=== PATIENT | male | born 1980 | race Caucasian/White ===

== ENCOUNTER 2016-03-25 11:00 | Inpatient (IN) | payer MEDICAID ==
[~2016-03-25] VITALS: Ht 180.3 cm; Wt 106.3 kg
[2016-03-25] VITALS (10 sets, daily range): BP systolic 141–218; BP diastolic 73–122; PULSE 84–124; RESP 12–22; TEMP 97.7–98.7; O2SAT 94–98
[~2016-03-25 11:00] MED LIST: AMLO5TAB22 PO; ERYT1O EACH EYE
--- NOTE | 2016-03-25 12:11 | PD ---
HPI Chief Complaint: Numbness/Tingling Time Seen by Provider: 12:08 Travel History International Travel<30 days: No Contact w/Intl Traveler<30days: No Traveled to known affect area: No History of Present Illness HPI 35-year-old male presents to the emergency department for evaluation of paresthesias to his right arm and right leg that started yesterday morning. He also states he has had trouble gripping things with his right hand which is new for him. The patient states he tried to grab some nails at work and could not do this so he came to the emergency department. Patient denies any headache. He denies any chest pain or shortness of breath. Patient denies any abdominal pain. No nausea or vomiting. Patient denies having any chronic medical problems or take any prescribed medications. Blood pressure is elevated in triage. Patient states he is unsure if he has had high blood pressure in the past. He drinks alcohol on the weekends only. He denies any tobacco or illegal drug use. Patient denies any fevers or chills. [facility] Social History Alcohol Use: Yes (SOCIAL) Tobacco Use: No Substance Use: No Allergies-Medications (Allergen,Severity, Reaction): Coded Allergies: No Known Allergies (Unverified , 03/25/16) Reported Meds & Prescriptions Reported Meds & Active Scripts Active No Active Prescriptions or Reported Medications Review of Systems Except as stated in HPI: all other systems reviewed are Neg Physical Exam Narrative GENERAL: Well-developed well-nourished male patient, afebrile. SKIN: Warm and dry. HEAD: Normocephalic. Atraumatic. EYES: No scleral icterus. No injection or drainage. NECK: Supple, trachea midline. No JVD or lymphadenopathy. CARDIOVASCULAR: Regular rate and rhythm without murmurs, gallops, or rubs. RESPIRATORY: Breath sounds equal bilaterally. No accessory muscle use. Lungs sounds are clear to auscultation. GASTROINTESTINAL: Abdomen soft, non-tender, nondistended. MUSCULOSKELETAL: No cyanosis, or edema. Bilateral upper and lower extremity strength 5/5. All extremities are neurovascularly intact. BACK: Nontender without obvious deformity. No CVA tenderness. NEUROLOGICAL: Awake and alert. Cranial nerves II through XII intact. Motor and sensory grossly within normal limits. Five out of 5 muscle strength in all muscle groups. Normal speech. Finger to nose is normal bilaterally. Data Data Last Documented VS Vital Signs Date Time Temp Pulse Resp B/P Pulse Ox O2 Delivery O2 Flow Rate FiO2 03/25/16 13:38 92 12 168/104 96 Nasal Cannula 2 03/25/16 11:02 98.7 Orders Electrocardiogram (03/25/16 12:06) Complete Blood Count With Diff (03/25/16 12:06) Basic Metabolic Panel (Bmp) (03/25/16 12:06) Creatine Kinase (Cpk) (03/25/16 12:06) Troponin I (03/25/16 12:06) Ct Brain W/O Iv Contrast(Rout) (03/25/16 12:06) Magnesium (Mg) (03/25/16 12:06) Prothrombin Time / Inr (Pt) (03/25/16 12:43) Act Partial Throm Time (Ptt) (03/25/16 12:43) Ecg Monitoring (03/25/16 12:43) Iv Access Insert/Monitor (03/25/16 12:43) Oximetry (03/25/16 12:43) Sodium Chloride 0.9% Flush (Ns Flush) (03/25/16 12:45) Fibrinogen (03/25/16 12:43) Nicardipine Inj (Cardene Inj) (03/25/16 12:45) Consult Neurosurgery (03/25/16 ) Labs Laboratory Tests Test 03/25/16 03/25/16 12:30 13:10 White Blood Count 10.8 TH/MM3 Red Blood Count 5.05 MIL/MM3 Hemoglobin 15.2 GM/DL Hematocrit 43.6 % Mean Corpuscular Volume 86.2 FL Mean Corpuscular Hemoglobin 30.0 PG Mean Corpuscular Hemoglobin 34.8 % Concent Red Cell Distribution Width 13.6 % Platelet Count 229 TH/MM3 Mean Platelet Volume 7.9 FL Neutrophils (%) (Auto) 58.7 % Lymphocytes (%) (Auto) 27.4 % Monocytes (%) (Auto) 7.7 % Eosinophils (%) (Auto) 5.2 % Basophils (%) (Auto) 1.0 % Neutrophils # (Auto) 6.3 TH/MM3 Lymphocytes # (Auto) 3.0 TH/MM3 Monocytes # (Auto) 0.8 TH/MM3 Eosinophils # (Auto) 0.6 TH/MM3 Basophils # (Auto) 0.1 TH/MM3 CBC Comment DIFF FINAL Differential Comment Sodium Level 141 MEQ/L Potassium Level 3.8 MEQ/L Chloride Level 107 MEQ/L Carbon Dioxide Level 27.8 MEQ/L Anion Gap 6 MEQ/L Blood Urea Nitrogen 16 MG/DL Creatinine 0.97 MG/DL Estimat Glomerular Filtration 89 ML/MIN Rate Random Glucose 102 MG/DL Calcium Level 8.8 MG/DL Magnesium Level 2.2 MG/DL Total Creatine Kinase 121 U/L Troponin I LESS THAN 0.02 NG/ML Prothrombin Time 10.9 SEC Prothromb Time International 1.0 RATIO Ratio Activated Partial 26.8 SEC Thromboplast Time Fibrinogen 270 mg/dL [facility] Medical Decision Making Medical Screen Exam Complete: Yes Emergency Medical Condition: Yes Medical Record Reviewed: Yes Differential Diagnosis CVA versus TIA versus intracranial hemorrhage versus hypertension versus electrolyte abnormality Narrative Course 35-year-old male presents to the emergency department for evaluation of paresthesias on his right arm and right leg as well as trouble gripping with his right hand since yesterday morning. EKG, CBC, BMP, magnesium, CK, troponin , CT of the brain are ordered. Workup is initiated in triage. Once a medical bed becomes available, patient will be transferred and care assumed by that provider. While patient was in the triage room, radiologist informed me that patient has a 2.8 x 1.8 cm high density acute hemorrhage centered in the left basal ganglia with mild surrounding edema. I contacted my attending physician, Dr. Curiel, who also saw patient. PTT, PT/INR, fibrinogen were ordered as well as cardene drip. Neurosurgeon commissions coordinator is paged. EKG shows sinus rhythm, LVH, no STEMI. The patient was moved to medical pod. My attending physician, Dr. Curiel, will resume care of patient. Scripts No Active Prescriptions or Reported Meds Winnie Cano Mar 25, 2016 12:11
--- NOTE | 2016-03-25 12:39 | RADRPT ---
EXAM DATE/TIME: 03/25/2016 12:17 [place] COMPARISON: No previous studies available for comparison. INDICATIONS : Right sided arm and leg numbness since yesterday. RADIATION DOSE: 56.78 CTDIvol (mGy) MEDICAL HISTORY : None SURGICAL HISTORY : None. ENCOUNTER: Initial ACUITY: 1 day PAIN SCALE: 0/10 LOCATION: cranial TECHNIQUE: Multiple contiguous axial images were obtained of the head. Using automated exposure control and adj ustment of the mA and/or kV according to patient size, radiation dose was kept as low as reasonably a chievable to obtain optimal diagnostic quality images. FINDINGS: CEREBRUM: The ventricles are normal for age. No evidence of midline shift, mass lesion, or acute infarction. T here is a 2.8 x 1.8 cm high density acute hemorrhage centered in the left basal ganglia with mild misha rounding edema. There is no significant mass effect or midline shift. No extra-axial fluid collection s are seen. POSTERIOR FOSSA: The cerebellum and brainstem are intact. The 4th ventricle is midline. The cerebellopontine angle i s unremarkable. EXTRACRANIAL: The visualized portion of the orbits is intact. SKULL: The calvaria is intact. No evidence of skull fracture. CONCLUSION: Acute high density hemorrhage in the left basal ganglia with mild surrounding edema. These findings were called emergently to the ER to [facility] at 1236 hrs. Pal Zapata MD on March 25, 2016 at 12:34 Board Certified Radiologist. This report was verified electronically.
[2016-03-25] MEDS ORDERED: niCARdipine INJ 25 MG in SODIUM CHLOR 0.9% 250 ML INJ 250 ML IV ONE ×2 (12:45→19:30)
[2016-03-25] MEDS ORDERED: SODIUM CHLORIDE 0.9% FLUSH 5 ML FLUSH IVF PRN (12:45)
[2016-03-25 12:46] LABS: AUTOMATED NEUTROPHIL # 6.3 TH/MM3 (1.8-7.7); BASOPHIL # 0.1 TH/MM3 (0-0.2); EOSINOPHIL # 0.6 TH/MM3 (0-0.4); EOSINOPHIL % 5.2 % (0.0-4.0); HEMATOCRIT 43.6 % (39.0-51.0); HEMO FLAGS DIFF FINAL; LYMPH % 27.4 % (9.0-44.0); MEAN CELL VOLUME 86.2 FL (80.0-100.0); MEAN CORPUSCULAR HGB CONC 34.8 % (32.0-36.0); MONO % 7.7 % (0.0-8.0); NEUT % 58.7 % (16.0-70.0); PLATELET COUNT 229 TH/MM3 (150-450); RED BLOOD COUNT 5.05 MIL/MM3 (4.50-5.90); RED CELL DISTRIBUTION WIDTH 13.6 % (11.6-17.2); WHITE BLOOD COUNT 10.8 TH/MM3 (4.0-11.0)
--- NOTE | 2016-03-25 12:54 | PD ---
Data Data Last Documented VS Vital Signs Date Time Temp Pulse Resp B/P Pulse Ox O2 Delivery O2 Flow Rate FiO2 03/25/16 13:38 92 12 168/104 96 Nasal Cannula 2 03/25/16 11:02 98.7 Orders Electrocardiogram (03/25/16 12:06) Complete Blood Count With Diff (03/25/16 12:06) Basic Metabolic Panel (Bmp) (03/25/16 12:06) Creatine Kinase (Cpk) (03/25/16 12:06) Troponin I (03/25/16 12:06) Ct Brain W/O Iv Contrast(Rout) (03/25/16 12:06) Magnesium (Mg) (03/25/16 12:06) Prothrombin Time / Inr (Pt) (03/25/16 12:43) Act Partial Throm Time (Ptt) (03/25/16 12:43) Ecg Monitoring (03/25/16 12:43) Iv Access Insert/Monitor (03/25/16 12:43) Oximetry (03/25/16 12:43) Sodium Chloride 0.9% Flush (Ns Flush) (03/25/16 12:45) Fibrinogen (03/25/16 12:43) Nicardipine Inj (Cardene Inj) (03/25/16 12:45) Consult Neurosurgery (03/25/16 ) Admit Order (Ed Use Only) (03/25/16 13:40) Labs Laboratory Tests Test 03/25/16 03/25/16 12:30 13:10 White Blood Count 10.8 TH/MM3 Red Blood Count 5.05 MIL/MM3 Hemoglobin 15.2 GM/DL Hematocrit 43.6 % Mean Corpuscular Volume 86.2 FL Mean Corpuscular Hemoglobin 30.0 PG Mean Corpuscular Hemoglobin 34.8 % Concent Red Cell Distribution Width 13.6 % Platelet Count 229 TH/MM3 Mean Platelet Volume 7.9 FL Neutrophils (%) (Auto) 58.7 % Lymphocytes (%) (Auto) 27.4 % Monocytes (%) (Auto) 7.7 % Eosinophils (%) (Auto) 5.2 % Basophils (%) (Auto) 1.0 % Neutrophils # (Auto) 6.3 TH/MM3 Lymphocytes # (Auto) 3.0 TH/MM3 Monocytes # (Auto) 0.8 TH/MM3 Eosinophils # (Auto) 0.6 TH/MM3 Basophils # (Auto) 0.1 TH/MM3 CBC Comment DIFF FINAL Differential Comment Sodium Level 141 MEQ/L Potassium Level 3.8 MEQ/L Chloride Level 107 MEQ/L Carbon Dioxide Level 27.8 MEQ/L Anion Gap 6 MEQ/L Blood Urea Nitrogen 16 MG/DL Creatinine 0.97 MG/DL Estimat Glomerular Filtration 89 ML/MIN Rate Random Glucose 102 MG/DL Calcium Level 8.8 MG/DL Magnesium Level 2.2 MG/DL Total Creatine Kinase 121 U/L Troponin I LESS THAN 0.02 NG/ML Prothrombin Time 10.9 SEC Prothromb Time International 1.0 RATIO Ratio Activated Partial 26.8 SEC Thromboplast Time Fibrinogen 270 mg/dL MDM Supervised Visit with MILAGROS: Yes Narrative Course I, Dr. Curiel, have reviewed the advance practice practioner's documentation and am in agreement, met with the patient face to face, made the diagnosis, and the medical decision making was done by me. 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 Patient notably significantly hypertensive in triage, and denies any known history of hypertension and denies any chronic medical problems. Patient' s neurologic exam is unremarkable without any focal deficits. Regular rate and rhythm, hypertensive. Differential includes tension headache, migraine headache , ICH, hypertensive urgency, hypertensive encephalopathy. Twelve-lead EKG shows evidence of LVH with strain-type pattern. Head CT was obtained showing acute high density hemorrhage in the left basal ganglia with mild surrounding edema. Patient placed on nicardipine drip. He is not anticoagulated. Laboratory results unremarkable. I spoke with neurosurgery who recommends consult to them and admitted to intensive this. Dr. Nix will accept admission. Urine drug screen added onto workup. Critical Care Narrative Aggregate critical care time was 40 minutes. Time to perform other separately billable procedures was not included in the critical care time. My time did not include minutes spent treating any other patients simultaneously or on activities that did not directly contribute to the patient's treatment. The services I provided to this patient were to treat and/or prevent clinically significant deterioration that could result in: Neurologic decompensation, , disability I provided critical care services requiring my management, as noted below: Chart data review, documentation time, medication orders and management, vital sign assessments/reviewing monitor data, ordering and reviewing lab tests, ordering and interpreting/reviewing x-rays and diagnostic studies, care of the patient and discussion of the patient with the admitting physicians. Diagnosis Primary Impression: Intraparenchymal hemorrhage of brain Additional Impression: Hypertensive emergency Admitting Information Admitting Physician Requests: Admit Scripts No Active Prescriptions or Reported Meds Sofie Curiel MD Mar 25, 2016 12:54
[2016-03-25 13:04] LABS: ANION GAP 6 MEQ/L (5-15); BICARBONATE 27.8 MEQ/L (21.0-32.0); BLOOD UREA NITROGEN 16 MG/DL (7-18); CHLORIDE 107 MEQ/L (98-107); GLOMERULAR FILTRATION RATE 89 ML/MIN (>89); MAGNESIUM 2.2 MG/DL (1.5-2.5); POTASSIUM 3.8 MEQ/L (3.5-5.1); SODIUM (NA) 141 MEQ/L (136-145)
[2016-03-25 13:06] LABS: CREATINE KINASE 121 U/L (39-308)
[2016-03-25] MEDS ORDERED: HYDROmorphone HCL PF 1 MG/ML VIAL IV PRN (13:30)
[2016-03-25] MEDS ORDERED: ACETAMINOPHEN 325 MG TAB PO PRN (13:30)
[2016-03-25] MEDS: SODIUM CHLORIDE 0.9% FLUSH 5 ML FLUSH IV FLUSH SCH ×2 (13:30→19:26)
[2016-03-25] MEDS ORDERED: RESP: ALBUTEROL 2.5 MG/IPRATROPIUM 0.5 MG NEB (PRN) INH (13:30)
[2016-03-25] MEDS ORDERED: SODIUM CHLORIDE 0.9% FLUSH 5 ML FLUSH IV FLUSH PRN (13:30)
[2016-03-25] MEDS ORDERED: MISCELLANEOUS NURSING INFORMATION XX SCH (13:30)
[2016-03-25] MEDS ORDERED: CHLORHEXIDINE GLUCONATE 2 % 1 PACK (2 CLOTHS) TOP PRN (13:30)
[2016-03-25] MEDS ORDERED: ONDANSETRON HCL 4 MG/2 ML VIAL IV PRN (13:30)
[2016-03-25 13:31] LABS: APTT (PATIENT) 26.8 SEC (24.3-30.1); PROTHROMBIN TIME - PATIENT 10.9 SEC (9.8-11.6)
--- NOTE | 2016-03-25 13:31 | HHI.HP ---
HPI Service Critical Care Medicine Primary Care Physician No Primary Care Physician Admission Diagnosis Diagnosis: (1) Intraparenchymal hemorrhage of brain Diagnosis: Principal (2) Hypertensive emergency Diagnosis: Principal Chief Complaint: Numbness of right arm and leg X 12 hours. Travel History International Travel<30 Days: No Contact w/Intl Traveler <30 Da: No Traveled to Known Affected Are: No History of Present Illness 36 y/o right handed man developed numbness and weakness of his right hand, arm, leg. Arrived to ED with hypertensive crisis, BP 218/122, neuro motor intact grossly. CT Head with left basal ganglia bleed about 3 X 2 cm.. Cardene started in ED. Review of Systems Neurologic: COMPLAINS OF: Localized weakness, Paresthesias Past Family Social History Allergies: Coded Allergies: No Known Allergies (Unverified , 03/25/16) Past Medical History PFSH Social History Alcohol Use: Yes (SOCIAL) Tobacco Use: No Substance Use: No Allergies-Medications Allergies-Medications (Allergen,Severity, Reaction): Coded Allergies: No Known Allergies (Unverified , 03/25/16) Reported Meds & Prescriptions Reported Meds & Active Scripts Active Amlodipine Besylate 5 mg (Amlodipine Besylate) 5 Mg Tab 1 Tab PO DAILY 30 Days Reported Erythromycin Opht 0.5% Oint (Erythromycin) 0.5 % Oint 1 Applic EACH EYE BID Physical Exam Vital Signs Vital Signs Date Time Temp Pulse Resp B/P Pulse Ox O2 Delivery O2 Flow Rate FiO2 03/25/16 11:02 98.7 84 12 218/122 95 Room Air Physical Exam Gen: Calm, comfortable. Head: Atraumatic. Normal. Neck: Supple, airway widely patent. Lungs: Clear, no wheezes or crackles. Heart: NL S1S2, no JVD. RRR. Abdomen: Soft, nontender, nondistended, benign. Extremities: Warm, well perfused. No edema. Neuro: O X 3, conversant. Moves 4 limbs to command with equal symmetrical strength. GERARDO. EOMs intact. Laboratory Laboratory Tests Test 03/25/16 12:30 White Blood Count 10.8 Red Blood Count 5.05 Hemoglobin 15.2 Hematocrit 43.6 Mean Corpuscular Volume 86.2 Mean Corpuscular Hemoglobin 30.0 Mean Corpuscular Hemoglobin 34.8 Concent Red Cell Distribution Width 13.6 Platelet Count 229 Mean Platelet Volume 7.9 Neutrophils (%) (Auto) 58.7 Lymphocytes (%) (Auto) 27.4 Monocytes (%) (Auto) 7.7 Eosinophils (%) (Auto) 5.2 Basophils (%) (Auto) 1.0 Neutrophils # (Auto) 6.3 Lymphocytes # (Auto) 3.0 Monocytes # (Auto) 0.8 Eosinophils # (Auto) 0.6 Basophils # (Auto) 0.1 CBC Comment DIFF FINAL Differential Comment Sodium Level 141 Potassium Level 3.8 Chloride Level 107 Carbon Dioxide Level 27.8 Anion Gap 6 Blood Urea Nitrogen 16 Creatinine 0.97 Estimat Glomerular Filtration 89 Rate Random Glucose 102 Calcium Level 8.8 Magnesium Level 2.2 Total Creatine Kinase 121 Troponin I LESS THAN 0.02 Result Diagram: 03/25/16 1230 03/25/16 1230 Assessment and Plan Problem List: (1) Intraparenchymal hemorrhage of brain ICD Code: I61.9 Status: Acute (2) Hypertensive emergency ICD Code: I16.1 Status: Acute Assessment and Plan Plan: CV: Cardene gtt to keep SBP 110 - 140 range. RESP: NC O2 to keep sats > 92% NEURO: Repeat head CT am or earlier for neuro change. RENAL: Serial RFTS. GI: Swallow eval. : Hold rice for now. ID: Culture for fevers. HEME: Serial Hgb. PX: Hold chemical DVT px. SCDS, protonix. Overall impression: Hypertensive intracranial hemorrhage with initial bleed. Critically ill and requires meticulous BP control. Anticipate continuing deterioration. Critical care 40 mins Wicho Gill MD Mar 25, 2016 13:31
[2016-03-25] MEDS: NS + KCL 20 MEQ INJ 1,000 ML IV SCH (14:44)
[2016-03-25] MEDS: PANTOPRAZOLE SODIUM 40 MG VIAL IV SCH (14:45)
--- NOTE | 2016-03-25 15:03 | PD.CONS ---
[facility] Service neurosurg Consult Requested By Dr Smith Reason for Consult ICH Primary Care Physician No Primary Care Physician History of Present Illness This is a 35-year-old male presents to the emergency department for evaluation of paresthesias to his right arm and right leg. He also states he has had trouble gripping things with his right hand. Apparebntly he tried to grab some nails at work and could not do this so he came to the emergency department. Patient denies any headache. No seizure activity. No tongue biting. No tonic- clonic movements. No incontinence of stool or urine He denies any chest pain or shortness of breath. Patient denies any abdominal pain. No nausea or vomiting. Patient denies having any chronic medical problems or take any prescribed medications. Blood pressure is elevated. Arrived to ED with an hypertensive crisis. BP 218/122. Cardene started in ED. Patient states he is unsure if he has had high blood pressure in the past. He denies any tobacco or illegal drug use. Patient denies any fevers or chills. CT Head with left basal ganglia bleed about 3 X 2 cm.. Neurosurgical consultation requested Review of Systems Constitutional: DENIES: Diaphoretic episodes, Fatigue, Fever, Weight gain, Weight loss, Chills, Dizziness, Change in appetite, Night Sweats Endocrine: DENIES: Heat/cold intolerance, Polydipsia, Polyuria, Polyphagia Eyes: DENIES: Blurred vision, Diplopia, Eye inflammation, Eye pain, Vision loss , Photosensitivity, Double Vision Ears, nose, mouth, throat: DENIES: Tinnitus, Hearing loss, Vertigo, Nasal discharge, Oral lesions, Throat pain, Hoarseness, Ear Pain, Running Nose, Epistaxis, Sinus Pain, Toothache, Odynophagia Respiratory: DENIES: Apneas, Cough, Snoring, Wheezing, Hemoptysis, Sputum production, Shortness of breath Cardiovascular: DENIES: Chest pain, Palpitations, Syncope, Dyspnea on Exertion , PND, Lower Extremity Edema, Orthopnea, Claudication Gastrointestinal: DENIES: Abdominal pain, Black stools, Bloody stools, Constipation, Diarrhea, Nausea, Vomiting, Difficulty Swallowing, Anorexia Genitourinary: DENIES: Sexual dysfunction, Urinary frequency, Urinary incontinence, Urgency, Hematuria, Dysuria, Nocturia, Penile Discharge, Testicular Pain, Testicular Swelling Musculoskeletal: DENIES: Joint pain, Muscle aches, Stiffness, Joint Swelling, Back pain, Neck pain Integumentary: DENIES: Abnormal pigmentation, Nail changes, Pruritus, Rash Hematologic/lymphatic: DENIES: Bruising, Lymphadenopathy Immunologic/allergic: DENIES: Eczema, Urticaria Neurologic: COMPLAINS OF: Localized weakness, Paresthesias, DENIES: Abnormal gait, Headache, Seizures, Speech Problems, Tremor, Poor Balance Psychiatric: DENIES: Anxiety, Confusion, Mood changes, Depression, Hallucinations, Agitation, Suicidal Ideation, Homicidal Ideation, Delusions Past Family Social History Allergies: Coded Allergies: No Known Allergies (Unverified , 03/25/16) Past Medical History Hypertension Reported Medications Amlodipine Besylate 5 mg (Amlodipine Besylate) 5 Mg Tab 1 Tab PO DAILY 30 Days Erythromycin Opht 0.5% Oint (Erythromycin) 0.5 % Oint 1 Applic EACH EYE BID Active Ordered Medications Current Medications IV Flush 2 ml 2 ml UNSCH PRN IVF FLUSH AFTER USING IV ACCESS; Start 03/25/16 at 12:45; Stop 03/25/16 at 14:16; Status DC Nicardipine HCl 25 mg/Sodium Chloride 260 ml @ 0 mls/hr TITRATE ONCE IV Last administered on 03/25/16 13:24; Start 03/25/16 at 12:45; Stop 03/25/16 at 12:46 ; Status DC Potassium Chloride/Sodium Chloride (NS + KCl 20 Meq Inj) 1,000 ml @ 50 mls/hr Q20H IV Last administered on 03/25/16 14:44; Start 03/25/16 at 13:29 IV Flush (NS Flush) 2 ml UNSCH PRN IV FLUSH FLUSH AFTER USING IV ACCESS; Start 03/25/16 at 13:30 IV Flush (NS Flush) 2 ml BID IV FLUSH ; Start 03/25/16 at 13:30 Acetaminophen (Tylenol) 650 mg Q6H PRN PO PAIN 1-5 AND/OR FEVER >101F; Start at 13:30 Hydromorphone HCl (Dilaudid Pf Inj) 1 mg Q4H PRN IV PAIN SCALE 6 TO 10; Start 03/25/16 at 13:30 Pantoprazole Sodium (Protonix Inj) 40 mg DAILY IV Last administered on 14:45; Start 03/25/16 at 14:15 Ondansetron HCl (Zofran Inj) 4 mg Q6H PRN IV NAUSEA OR VOMITING; Start at 13:30 Albuterol/ Ipratropium (Duoneb Neb) 1 ampule Q4HR NEB PRN INH WHEEZING; Start 03/25/16 at 13:30 Miscellaneous Information 1 [id number] XX ; Start 03/25/16 at 13:30 Chlorhexidine Gluconate (Chlorhexidine 2% Cloth) 3 pack Taper DAILY@04 TOP ; Start 03/26/16 at 04:00; Stop 03/22/17 at 03:59 Chlorhexidine Gluconate (Chlorhexidine 2% Cloth) 3 pack UNSCH PRN TOP HYGIENIC CARE; Start 03/25/16 at 13:30 Iohexol 73 ml 73 ml STK-MED ONCE IV Last administered on 03/25/16 16:32; Start 03/25/16 at 16:32; Stop 03/25/16 at 16:33; Status DC Nicardipine HCl 25 mg/Sodium Chloride 260 ml @ 0 mls/hr TITRATE ONCE IV Last administered on 03/25/16 19:30; Start 03/25/16 at 19:30; Stop 03/25/16 at 19:31 ; Status DC Nicardipine HCl/ Sodium Chloride (Cardene Inj/NS 250 ml Inj) 260 ml @ 0 mls/hr TITRATE IV Last administered on 03/25/16 21:01; Start 03/25/16 at 20:45 Family History NC Social History Alcohol Use: Yes Tobacco Use: No Substance Use: No Physical Exam Vital Signs Vital Signs Date Time Temp Pulse Resp B/P Pulse Ox O2 Delivery O2 Flow Rate FiO2 03/25/16 14:35 103 16 162/88 95 Room Air 2 03/25/16 13:38 92 12 168/104 96 Nasal Cannula 2 03/25/16 11:02 98.7 84 12 218/122 95 Room Air Physical Exam Mr tovar is alert, awake and oriented to time, place and person. Speech is fluent. Cranial nerve examination: pupils to be equal, round and reactive to light. Extra-ocular movements are intact. Facial motor and sensory function are normal and symmetrical. Gross hearing appears intact. Sternocleidomastoid and trapezius muscles are symmetrical. Other cranial nerves are intact. Neck is soft and supple with a good range of motion without pain. He has a right pronator drift, otherwise muscle strength is normal in all muscle groups of both upper and lower extremities. Sensory examination is intact to light touch and pin prick in both the upper and lower extremities. Deep tendon reflexes are symmetrical in both upper and lower extremities. There is a bilateral plantar flexion response. Cerebellar examination is unremarkable, without deficits. Laboratory Laboratory Tests Test 03/25/16 03/25/16 12:30 13:10 White Blood Count 10.8 Red Blood Count 5.05 Hemoglobin 15.2 Hematocrit 43.6 Mean Corpuscular Volume 86.2 Mean Corpuscular Hemoglobin 30.0 Mean Corpuscular Hemoglobin 34.8 Concent Red Cell Distribution Width 13.6 Platelet Count 229 Mean Platelet Volume 7.9 Neutrophils (%) (Auto) 58.7 Lymphocytes (%) (Auto) 27.4 Monocytes (%) (Auto) 7.7 Eosinophils (%) (Auto) 5.2 Basophils (%) (Auto) 1.0 Neutrophils # (Auto) 6.3 Lymphocytes # (Auto) 3.0 Monocytes # (Auto) 0.8 Eosinophils # (Auto) 0.6 Basophils # (Auto) 0.1 CBC Comment DIFF FINAL Differential Comment Sodium Level 141 Potassium Level 3.8 Chloride Level 107 Carbon Dioxide Level 27.8 Anion Gap 6 Blood Urea Nitrogen 16 Creatinine 0.97 Estimat Glomerular Filtration 89 Rate Random Glucose 102 Calcium Level 8.8 Magnesium Level 2.2 Total Creatine Kinase 121 Troponin I LESS THAN 0.02 Prothrombin Time 10.9 Prothromb Time International 1.0 Ratio Activated Partial 26.8 Thromboplast Time Fibrinogen 270 Result Diagram: 03/25/16 1230 03/25/16 1230 Imaging Last Impressions Neck CTA 03/25/16 9349 Signed Impressions: Service Date/Time: Friday, March 25, 2016 16:23 - CONCLUSION: 1. 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 2. Otherwise, the cervical vessels are all patent with no significant stenosis. Paco Moreno MD Head CT 03/25/16 1206 Signed Impressions: Service Date/Time: Friday, March 25, 2016 12:17 - CONCLUSION: Acute high density hemorrhage in the left basal ganglia with mild surrounding edema. These findings were called emergently to the ER to [facility] at 1236 hrs. Pal Zapata MD Head CTA 03/25/16 0000 Signed Impressions: Service Date/Time: Friday, March 25, 2016 16:23 - CONCLUSION: 1. Anatomic variant of the samish of Garcia. Patient is right vertebral dominant. 2. Otherwise, intracranial vessels are patent without aneurysmal disease. No AVM . Pcao Moreno MD Attending Statement Neuro. I have reviewed his clinical and radiological findings. neuro checks in a serial fashion. No surgical treatment. Will obtain CTA to rule out an incidental AVM Hypertension. Uncontrolled. On cardene drip Respiratory. pulmonary toilette, nasotracheal suction, and breathing treatments with nebulizers. PT and OT Nutrition. NPO Abdominal mass. Defer to trauma surgeon Renal. monitor closely urine output, BUN and creatinine Endocrine. Monitor serial Acu checks and SSI as needed in detail ID monitor for signs of infection Protonix for stress ulcer prophylaxis Ross hose and SCD's for DVT prophylaxis Michael Rodríguez MD Mar 25, 2016 15:03
[2016-03-25 15:37] LABS: AMPHETAMINE, URINE NEG (NEG); BARBITURATES, URINE NEG (NEG); COCAINE, URINE NEG (NEG)
[2016-03-25] MEDS ORDERED: IOHEXOL 350 MG/ML 10 ML VIAL (for RAD DIAG) IV ONE (16:32)
--- NOTE | 2016-03-25 17:32 | RADRPT ---
EXAM DATE/TIME: 03/25/2016 16:23 [facility] COMPARISON: CT BRAIN W/O CONTRAST, March 25, 2016, 12:17. INDICATIONS : Right sided numbness for 2 days, intracranial hemorrhage. IV CONTRAST: 73 cc Omnipaque 350 (iohexol) IV ; Cumulative dose for multiple exams. RADIATION DOSE: 14.72 CTDIvol (mGy) ; Combined studies MEDICAL HISTORY : None SURGICAL HISTORY : None. ENCOUNTER: Initial ACUITY: 2 days PAIN SCALE: 0/10 LOCATION: neck TECHNIQUE: Volumetric scanning was performed using a multirow detector CT scanner. The data was post processed with a variety of visualization algorithms including full-volume maximum intensity projection, multip lanar sliding thin-slab reformation, curved-planar reformation, and surface-rendering techniques. Us ing automated exposure control and adjustment of the mA and/or kV according to patient size, radiatio n dose was kept as low as reasonably achievable to obtain optimal diagnostic quality images. FINDINGS: AORTIC ARCH: Anatomic variant of the aortic arch with the diminutive left vertebral emanating directly off the arc h are. RIGHT CAROTID: The common carotid artery is intact. The carotid bulb has a normal configuration without ulceration o r narrowing. The internal carotid artery lumen is smooth without stenosis. The external carotid moriah ry is intact. LEFT CAROTID: The common carotid artery is intact. The carotid bulb has a normal configuration without ulceration or narrowing. The internal carotid artery lumen is smooth without stenosis. The external carotid ar aakash is intact. VERTEBRALS: Patient with right vertebral dominant. The diminutive left vertebral emanates directly off the arch. CONCLUSION: 1. 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 2. Otherwise, the cervical vessels are all patent with no significant stenosis. Paco Moreno MD on March 25, 2016 at 17:28 Board Certified Radiologist. This report was verified electronically.
--- NOTE | 2016-03-25 17:36 | RADRPT ---
EXAM DATE/TIME: 03/25/2016 16:23 [facility] COMPARISON: No previous studies available for comparison. INDICATIONS : Right sided numbness for 2 days, intracranial hemorrhage. IV CONTRAST: 73 cc Omnipaque 350 (iohexol) IV ; Cumulative dose for multiple exams. RADIATION DOSE: 14.72 CTDIvol (mGy) ; Combined studies MEDICAL HISTORY : None SURGICAL HISTORY : None. ENCOUNTER: Initial ACUITY: 2 days PAIN SCALE: 0/10 LOCATION: cranial TECHNIQUE: Volumetric scanning was performed using a multi-row detector CT scanner. The data was post processed with a variety of visualization algorithms including full volume maximum intensity projection, multi -planar sliding thin slab reformation, curved planar reformation, and surface rendering techniques. Using automated exposure control and adjustment of the mA and/or kV according to patient size, radiat ion dose was kept as low as reasonably achievable to obtain optimal diagnostic quality images. FINDINGS: There is excellent visualization of the major intracranial arteries out to the second-order branch ve ssels. There is no evidence for aneurysm, vessel truncation or stenosis, and no evidence for vascula r malformation. Patient is right vertebral dominant. 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 As noted on the prior CT, there is a hypertensive type basal ganglia bleed on left. CONCLUSION: 1. Anatomic variant of the [place]. Patient is right vertebral dominant. 2. Otherwise, intracranial vessels are patent without aneurysmal disease. No AVM . Paco Moreno MD on March 25, 2016 at 17:30 Board Certified Radiologist. This report was verified electronically.
[2016-03-25] MEDS: niCARdipine INJ 25 MG in SODIUM CHLOR 0.9% 250 ML INJ 250 ML IV SCH ×2 (21:01→23:00)
[2016-03-26] VITALS (14 sets, daily range): BP systolic 128–140; BP diastolic 62–71; PULSE 85–106; RESP 15–21; TEMP 98.1–98.7; O2SAT 94–97
[2016-03-26] MEDS: niCARdipine INJ 50 MG in SODIUM CHLORID 0.9% 500 ML INJ 480 ML IV SCH ×6 (02:00→18:34)
[2016-03-26] MEDS: CHLORHEXIDINE GLUCONATE 2 % 1 PACK (2 CLOTHS) TOP SCH (03:22)
[2016-03-26 04:23] LABS: BICARBONATE 25.4 MEQ/L (21.0-32.0); POTASSIUM 3.6 MEQ/L (3.5-5.1)
[2016-03-26] MEDS: NS + KCL 20 MEQ INJ 1,000 ML IV SCH (09:40)
[2016-03-26] MEDS: PANTOPRAZOLE SODIUM 40 MG VIAL IV SCH (09:40)
[2016-03-26] MEDS: SODIUM CHLORIDE 0.9% FLUSH 5 ML FLUSH IV FLUSH SCH ×2 (09:40→20:22)
--- NOTE | 2016-03-26 09:52 | HHI.NSPN ---
(Aracelis Bernardo) Note Status Status: Progress Note (Aracelis Bernardo) Interval History Interval History Mr. Soriano is a 36 y/o right handed male developed numbness and weakness of his right hand, arm, leg. Arrived to ED with an hypertensive crisis, BP 218/ 122. CT Head with left basal ganglia bleed about 3 X 2 cm.. Cardene started in ED. 03/26: on cardene, feeling ok, he denies headaches, nausea, vomiting. reports of mild weakness to the right side but he is able to move his right side well. (Aracelis Bernardo) Labs, Micro, & Vital Signs Results Date Time Temp Pulse Resp B/P Pulse Ox O2 Delivery O2 Flow Rate FiO2 03/26/16 08:00 98.1 100 15 137/64 97 03/26/16 08:00 99 03/26/16 07:49 97 Nasal Cannula 3.00 03/26/16 07:00 96 Nasal Cannula 4.00 03/26/16 06:00 92 03/26/16 04:00 93 03/26/16 04:00 93 21 137/65 95 03/26/16 02:00 94 03/26/16 00:00 98 17 130/62 95 03/26/16 00:00 98 03/25/16 22:00 114 03/25/16 20:00 101 03/25/16 20:00 98.6 100 22 146/77 94 03/25/16 19:00 94 Room Air 03/25/16 19:00 96 Room Air 03/25/16 18:00 97.7 102 22 141/83 96 03/25/16 18:00 102 03/25/16 17:40 99 15 146/80 95 Nasal Cannula 2 03/25/16 16:49 110 16 154/85 95 Nasal Cannula 2 03/25/16 15:28 103 16 150/73 95 Nasal Cannula 2 03/25/16 15:02 124 16 159/80 98 Nasal Cannula 2 03/25/16 14:35 103 16 162/88 95 Room Air 2 03/25/16 13:38 92 12 168/104 96 Nasal Cannula 2 03/25/16 11:02 98.7 84 12 218/122 95 Room Air 03/26/16 07:00 Intake Total 3139 ml Output Total 5003 ml Balance -1864 ml Constitutional Vital Signs Date Time Temp Pulse Resp B/P Pulse Ox O2 Delivery O2 Flow Rate FiO2 03/26/16 08:00 98.1 100 15 137/64 97 03/26/16 08:00 99 03/26/16 07:49 97 Nasal Cannula 3.00 03/26/16 07:00 96 Nasal Cannula 4.00 03/26/16 06:00 92 03/26/16 04:00 93 03/26/16 04:00 93 21 137/65 95 03/26/16 02:00 94 03/26/16 00:00 98 17 130/62 95 03/26/16 00:00 98 03/25/16 22:00 114 03/25/16 20:00 101 03/25/16 20:00 98.6 100 22 146/77 94 03/25/16 19:00 94 Room Air 03/25/16 19:00 96 Room Air 03/25/16 18:00 97.7 102 22 141/83 96 03/25/16 18:00 102 03/25/16 17:40 99 15 146/80 95 Nasal Cannula 2 03/25/16 16:49 110 16 154/85 95 Nasal Cannula 2 03/25/16 15:28 103 16 150/73 95 Nasal Cannula 2 03/25/16 15:02 124 16 159/80 98 Nasal Cannula 2 03/25/16 14:35 103 16 162/88 95 Room Air 2 03/25/16 13:38 92 12 168/104 96 Nasal Cannula 2 03/25/16 11:02 98.7 84 12 218/122 95 Room Air 03/26/16 07:00 Intake Total 3139 ml Output Total 5003 ml Balance -1864 ml (Aracelis Bernardo) Review of Systems/Exam Exam Mr. Bills is alert, awake and oriented to time, place and person. Speech is appropriate. Follows commands well. Cranial nerve examination: pupils 4 mm equal, round and reactive to light. Extra-ocular movements are intact, no nystagmus. Facial motor appears grossly symmetrical. Neck is soft and supple with a good range of motion without pain. Motor: 5-/5 right upper and lower extremity, moves left side with normal strength, mild right pronator drift Sensory examination: reports mildly diminished to right side Deep tendon reflexes are symmetrical in both upper and lower extremities. There is a bilateral plantar flexion response. Cerebellar examination is unremarkable, without deficits. (Aracelis Bernardo) Medications Current Medications Current Medications Medications (Trade) Dose Ordered Sig/Liliana Route PRN Reason Start Time Stop Time Status Last Admin Dose Admin Potassium Chloride/Sodium Chloride (NS + KCl 20 Meq Inj) 1,000 ml @ 50 mls/hr Q20H IV 03/25/16 13:29 03/26/16 09:40 IV Flush (NS Flush) 2 ml UNSCH PRN IV FLUSH FLUSH AFTER USING IV ACCESS 03/25/16 13:30 IV Flush (NS Flush) 2 ml BID IV FLUSH 03/25/16 13:30 03/26/16 09:40 Acetaminophen (Tylenol) 650 mg Q6H PRN PO PAIN 1-5 AND/OR FEVER >101F 03/25/16 13:30 Hydromorphone HCl (Dilaudid Pf Inj) 1 mg Q4H PRN IV PAIN SCALE 6 TO 10 03/25/16 13:30 Pantoprazole Sodium (Protonix Inj) 40 mg DAILY IV 03/25/16 14:15 03/26/16 09:40 Ondansetron HCl (Zofran Inj) 4 mg Q6H PRN IV NAUSEA OR VOMITING 03/25/16 13:30 Miscellaneous Information 1 Q361D XX 03/25/16 13:30 Chlorhexidine Gluconate (Chlorhexidine 2% Cloth) 3 pack Taper DAILY@04 TOP 03/26/16 04:00 03/22/17 03:59 03/26/16 03:22 Chlorhexidine Gluconate 3 pack 3 pack UNSCH PRN TOP HYGIENIC CARE 03/25/16 13:30 Nicardipine HCl/ Sodium Chloride (Cardene Inj/NS 500 ml Inj) 500 ml @ 0 mls/hr TITRATE IV 03/25/16 23:13 03/26/16 08:44 (Aracelis Bernardo) Medical Decision Making MDM Remarks 35 y/o male left basal ganglia bleed hypertensive crisis CTA Head neg for AVMs or aneurysm (Aracelis Bernardo) Plan Plan Remarks cont nonsurgical management medical management of hypertension PT, OT nonchemical DVT prophylaxis due to ICH protonix for stress ulcer prophylaxis dw patient and , they understand and agree with plan (Aracelis Bernardo) Attending Statement Neuro. I have reviewed his CTA. Continue. neuro checks in a serial fashion. Continue non surgical treatment. Hypertension. Continue cardene drip Respiratory. Continue pulmonary toilette, nasotracheal suction, and breathing treatments with nebulizers. Daily PT and OT Nutrition. Oral diet Renal. Continue to monitor closely urine output, BUN and creatinine Endocrine. Continue to Monitor serial Acu checks and SSI as needed in detail ID continue to monitor for signs of infection Continue Protonix for stress ulcer prophylaxis Continue Ross hose and SCD's for DVT prophylaxis (Michael Rodríguez MD) Aracelis Bernardo Mar 26, 2016 09:52 Michael Rodríguez MD Mar 26, 2016 13:49
--- NOTE | 2016-03-26 10:14 | HHI.CCPN ---
Subjective Remarks/Hospital Course 36 y/o right handed man developed numbness and weakness of his right hand, arm, leg. Arrived to ED with hypertensive crisis, BP 218/122, neuro motor intact grossly. CT Head with left basal ganglia bleed about 3 X 2 cm.. Cardene started in ED. 03/26: Sensation of numbness in his hand but sensory function present right arm. BP control good. No motor deficit. Objective Vital Signs Date Time Temp Pulse Resp B/P Pulse Ox O2 Delivery O2 Flow Rate FiO2 03/26/16 08:00 98.1 100 15 137/64 97 03/26/16 07:49 Nasal Cannula 3.00 Intake and Output 03/25/16 03/25/16 03/26/16 08:00 16:00 00:00 Intake Total 1305 ml Output Total 1750 ml Balance -445 ml Result Diagram: 03/25/16 1230 03/26/16 0339 Objective Remarks Gen: Calm, comfortable. Head: Atraumatic. Normal. Neck: Supple, airway widely patent. No snoring. Lungs: Clear, no wheezes or crackles. Comfortable pattern. Heart: NL S1S2, no JVD. RRR. Abdomen: Soft, nontender, nondistended, benign. BS active. Extremities: Warm, well perfused. No edema. Neuro: O X 3, conversant. Moves 4 limbs to command with equal symmetrical strength. GERARDO. EOMs intact. A/P Problem List: (1) Intraparenchymal hemorrhage of brain ICD Code: I61.9 Status: Acute (2) Hypertensive emergency ICD Code: I16.1 Status: Acute Assessment and Plan Plan: CV: Cardene gtt to keep SBP 110 - 140 range. Convert to oral meds. RESP: NC O2 to keep sats > 92% NEURO: Repeat head CT routine today or earlier for neuro change. RENAL: Serial RFTS. GI: Swallow eval. : Hold rice for now. ID: Culture for fevers. HEME: Serial Hgb. PX: Hold chemical DVT px. SCDS, protonix. Overall impression: Hypertensive intracranial hemorrhage, left basal ganglia. Requires meticulous BP control. Wicho Gill MD Mar 26, 2016 10:14
[2016-03-26] MEDS ORDERED: POTASSIUM CHLOR 40 MEQ PREMIX 100 ML IV PRN ×2 (10:15)
[2016-03-26] MEDS ORDERED: SODIUM PHOSPHATE INJ 30 MMOL in SODIUM CHLOR 0.9% 250 ML INJ 240 ML IV PRN (10:15)
[2016-03-26] MEDS ORDERED: MAGNESIUM OXIDE 400 MG TAB PO PRN (10:15)
[2016-03-26] MEDS ORDERED: POTASSIUM PHOSPHATE MONOBASIC 500 MG TAB PO/TUBE PRN (10:15)
[2016-03-26] MEDS ORDERED: MAGNESIUM SULFATE INJ 2 GM in SODIUM CHLORIDE 0.9% INJ 96 ML IV PRN (10:15)
[2016-03-26] MEDS ORDERED: POTASSIUM PHOSPHATE INJ 30 MMOL in SODIUM CHLOR 0.9% 250 ML INJ 250 ML IV PRN (10:15)
[2016-03-26] MEDS ORDERED: MAGNESIUM SULFATE INJ 4 GM in SODIUM CHLORIDE 0.9% INJ 92 ML IV PRN (10:15)
[2016-03-26] MEDS ORDERED: POTASSIUM CL 40 MEQ/30 ML LIQ UDC PO/TUBE PRN ×2 (10:15)
[2016-03-26] MEDS ORDERED: POTASSIUM CHLOR 20 MEQ PREMIX 100 ML IV PRN ×2 (10:15)
[2016-03-26] MEDS: POTASSIUM PHOSPHATE MONOBASIC 500 MG TAB PO PRN ×2 (14:52→18:40)
[2016-03-26] MEDS ORDERED: LABETALOL HCL 100 MG/20 ML VIAL IV PRN (22:00)
[2016-03-26] MEDS ORDERED: hydrALAZINE HCL 20 MG/ML VIAL IV PRN (22:00)
--- NOTE | 2016-03-26 23:10 | EKG ---
Date Performed: 03/25/2016 Time Performed: 12:34:40 PTAGE: 35 years EKG: Sinus rhythm LEFT VENTRICULAR HYPERTROPHY AND ST-T CHANGE ABNORMAL ECG NO PREVIOUS TRACING DOCTOR: Terese Rojas Interpretating Date/Time 03/26/2016 23:03:35
[2016-03-27] VITALS (12 sets, daily range): BP systolic 114–151; BP diastolic 60–95; PULSE 76–96; RESP 14–23; TEMP 98.1–98.7; O2SAT 92–99
[2016-03-27] MEDS: niCARdipine INJ 50 MG in SODIUM CHLORID 0.9% 500 ML INJ 480 ML IV SCH ×3 (03:15→14:10)
[2016-03-27] MEDS: CHLORHEXIDINE GLUCONATE 2 % 1 PACK (2 CLOTHS) TOP SCH (03:16)
[2016-03-27] MEDS: NS + KCL 20 MEQ INJ 1,000 ML IV SCH (04:32)
[2016-03-27 04:40] LABS: BICARBONATE 24.5 MEQ/L (21.0-32.0); POTASSIUM 3.8 MEQ/L (3.5-5.1)
--- NOTE | 2016-03-27 08:54 | HHI.CCPN ---
Subjective Remarks/Hospital Course 36 y/o right handed man developed numbness and weakness of his right hand, arm, leg. Arrived to ED with hypertensive crisis, BP 218/122, neuro motor intact grossly. CT Head with left basal ganglia bleed about 3 X 2 cm.. Cardene started in ED. 03/26: Sensation of numbness in his hand but sensory function present right arm. BP control good. No motor deficit. 03/27: No change in neuro status. Protects airway, swallow normal. Objective Vital Signs Date Time Temp Pulse Resp B/P Pulse Ox O2 Delivery O2 Flow Rate FiO2 03/27/16 06:00 91 03/27/16 04:00 16 114/71 96 03/26/16 19:00 Room Air 03/26/16 16:00 98.7 03/26/16 07:49 3.00 Intake and Output 03/26/16 03/26/16 03/27/16 08:00 16:00 00:00 Intake Total 1834 ml 2133 ml 1734 ml Output Total 3253 ml 1125 ml 600 ml Balance -1419 ml 1008 ml 1134 ml Result Diagram: 03/25/16 1230 03/27/16 0326 Objective Remarks Gen: Calm, comfortable. Head: Atraumatic. Normal. Neck: Supple, airway widely patent. No snoring. Lungs: Clear, no wheezes or crackles. Comfortable respiratory pattern. Heart: NL S1S2, no JVD. RRR. Abdomen: Soft, nontender, nondistended, benign. BS active. Extremities: Warm, well perfused. Neuro: O X 3, conversant. Moves 4 limbs to command with equal symmetrical strength. GERARDO. EOMs intact. A/P Problem List: (1) Intraparenchymal hemorrhage of brain ICD Code: I61.9 Status: Acute (2) Hypertensive emergency ICD Code: I16.1 Status: Acute Assessment and Plan Plan: CV: Cardene gtt to keep SBP 110 - 140 range. Converted to oral meds. RESP: NC O2 to keep sats > 92% NEURO: Repeat head CT routine -> no change. RENAL: Serial RFTS. GI: Swallow eval -> normal. : Hold rice for now. ID: Culture for fevers. HEME: Serial Hgb. PX: Hold chemical DVT px. SCDS, protonix. Overall impression: Hypertensive intracranial hemorrhage, left basal ganglia. Stable neurological function. Wicho Gill MD Mar 27, 2016 08:54
[2016-03-27] MEDS: PANTOPRAZOLE SODIUM 40 MG VIAL IV SCH (08:59)
[2016-03-27] MEDS: SODIUM CHLORIDE 0.9% FLUSH 5 ML FLUSH IV FLUSH SCH ×2 (09:00→21:25)
--- NOTE | 2016-03-27 09:08 | HHI.NSPN ---
(Aracelis Bernardo) Note Status Status: Progress Note (Aracelis Bernardo) Status: Progress Note (Michael Rodríguez MD) Interval History Interval History Mr. Soriano is a 36 y/o right handed male developed numbness and weakness of his right hand, arm, leg. Arrived to ED with an hypertensive crisis, BP 218/ 122. CT Head with left basal ganglia bleed about 3 X 2 cm.. Cardene started in ED. 03/26: on cardene, feeling ok, he denies headaches, nausea, vomiting. reports of mild weakness to the right side but he is able to move his right side well. 03/27: continues to be on cardene, neuro stable overnight, denies headaches, nausea, vomiting, right side with good strength (Aracelis Bernardo) Labs, Micro, & Vital Signs Results Date Time Temp Pulse Resp B/P Pulse Ox O2 Delivery O2 Flow Rate FiO2 03/27/16 06:00 91 03/27/16 04:00 84 16 114/71 96 03/27/16 04:00 84 03/27/16 02:00 88 03/27/16 00:00 88 03/27/16 00:00 88 21 139/76 92 03/26/16 22:34 95 03/26/16 22:00 94 03/26/16 20:00 102 18 140/63 94 03/26/16 20:00 100 03/26/16 19:00 95 Room Air 03/26/16 18:00 85 03/26/16 16:00 98.7 94 17 137/71 96 03/26/16 16:00 94 03/26/16 14:00 90 03/26/16 12:00 92 03/26/16 12:00 98.5 92 16 128/69 96 03/26/16 10:00 106 03/27/16 07:00 Intake Total 5061 ml Output Total 3525 ml Balance 1536 ml Constitutional Vital Signs Date Time Temp Pulse Resp B/P Pulse Ox O2 Delivery O2 Flow Rate FiO2 03/27/16 06:00 91 03/27/16 04:00 84 16 114/71 96 03/27/16 04:00 84 03/27/16 02:00 88 03/27/16 00:00 88 03/27/16 00:00 88 21 139/76 92 03/26/16 22:34 95 03/26/16 22:00 94 03/26/16 20:00 102 18 140/63 94 03/26/16 20:00 100 03/26/16 19:00 95 Room Air 03/26/16 18:00 85 03/26/16 16:00 98.7 94 17 137/71 96 03/26/16 16:00 94 03/26/16 14:00 90 03/26/16 12:00 92 03/26/16 12:00 98.5 92 16 128/69 96 03/26/16 10:00 106 03/27/16 07:00 Intake Total 5061 ml Output Total 3525 ml Balance 1536 ml (Aracelis Bernardo) Review of Systems/Exam Exam Mr. Bills is alert, awake and oriented to time, place and person. Speech is appropriate. Follows commands well. Cranial nerve examination: pupils 4 mm equal, round and reactive to light. Extra-ocular movements are intact, no nystagmus. Facial motor appears grossly symmetrical. Neck is soft and supple with a good range of motion without pain. Motor: 5-/5 right upper and lower extremity, moves left side with normal strength, mild right pronator drift Sensory examination: reports mildly diminished to right side Deep tendon reflexes are symmetrical in both upper and lower extremities. There is a bilateral plantar flexion response. Cerebellar examination is unremarkable, without deficits. (Aracelis Bernardo) Medications Current Medications Current Medications Medications (Trade) Dose Ordered Sig/Liliana Route PRN Reason Start Time Stop Time Status Last Admin Dose Admin Potassium Chloride/Sodium Chloride (NS + KCl 20 Meq Inj) 1,000 ml @ 50 mls/hr Q20H IV 03/25/16 13:29 03/27/16 04:32 IV Flush (NS Flush) 2 ml UNSCH PRN IV FLUSH FLUSH AFTER USING IV ACCESS 03/25/16 13:30 IV Flush (NS Flush) 2 ml BID IV FLUSH 03/25/16 13:30 03/27/16 09:00 Acetaminophen (Tylenol) 650 mg Q6H PRN PO PAIN 1-5 AND/OR FEVER >101F 03/25/16 13:30 Hydromorphone HCl (Dilaudid Pf Inj) 1 mg Q4H PRN IV PAIN SCALE 6 TO 10 03/25/16 13:30 Pantoprazole Sodium (Protonix Inj) 40 mg DAILY IV 03/25/16 14:15 03/27/16 08:59 Ondansetron HCl (Zofran Inj) 4 mg Q6H PRN IV NAUSEA OR VOMITING 03/25/16 13:30 Miscellaneous Information 1 Q361D XX 03/25/16 13:30 Chlorhexidine Gluconate (Chlorhexidine 2% Cloth) 3 pack Taper DAILY@04 TOP 03/26/16 04:00 03/22/17 03:59 03/26/16 03:22 Chlorhexidine Gluconate 3 pack 3 pack UNSCH PRN TOP HYGIENIC CARE 03/25/16 13:30 Nicardipine HCl 50 mg/Sodium Chloride 500 ml @ 0 mls/hr TITRATE IV 03/25/16 23:13 03/27/16 06:48 Potassium Chloride 100 ml @ 50 mls/hr Q2H PRN IV For Potassium 2.8 - 3.2 mEq/L 03/26/16 10:15 Potassium Chloride (KCl 20 Meq Premix Inj) 100 ml @ 50 mls/hr Q2H PRN IV For Potassium 2.8 - 3.2 mEq/L 03/26/16 10:15 Potassium Chloride 40 meq 40 meq UNSCH PRN PO/TUBE For Potassium 3.3 - 3.5 mEq/L 03/26/16 10:15 Potassium Chloride 100 ml @ 25 mls/hr UNSCH PRN IV For Potassium 3.3 - 3.5 mEq/L 03/26/16 10:15 Potassium Chloride 100 ml @ 50 mls/hr Q2H PRN IV For Potassium 3.3 - 3.5 mEq/L 03/26/16 10:15 Magnesium Sulfate/ Sodium Chloride (Magnesium Sulfate Inj/NS Inj) 100 ml @ 50 mls/hr UNSCH PRN IV For Magnesium 0.9 - 1.1 mg/dL 03/26/16 10:15 Magnesium Oxide 800 mg 800 mg UNSCH PRN PO For Magnesium 1.2 - 1.6 mg/dL 03/26/16 10:15 Magnesium Sulfate/ Sodium Chloride (Magnesium Sulfate Inj/NS Inj) 100 ml @ 50 mls/hr UNSCH PRN IV For Magnesium 1.2 - 1.6 mg/dL 03/26/16 10:15 Potassium Phosphate 2000 mg 2,000 mg Q4H PRN PO For Phosphorus < 2.5 mg/dL 03/26/16 10:15 03/26/16 18:40 Sodium Phosphate/ Sodium Chloride (Sodium Phosphate Inj/NS 250 ml Inj) 250 ml @ 42 mls/hr UNSCH PRN IV For Phosphorus < 2.5 mg/dL 03/26/16 10:15 Potassium Chloride (KCl 40 Meq/30 ml Liq) 40 meq UNSCH PRN PO/TUBE SEE LABEL COMMENTS 03/26/16 10:15 Potassium Phosphate 2000 mg 2,000 mg UNSCH PRN PO/TUBE SEE LABEL COMMENTS 03/26/16 10:15 Potassium Phosphate/Sodium Chloride (Potassium Phosphate Inj/NS 250 ml Inj) 260 ml @ 42 mls/hr UNSCH PRN IV SEE LABEL COMMENTS 03/26/16 10:15 Labetalol HCl (Trandate Inj) 20 mg Q1H PRN IV FOR SBP > 160 03/26/16 22:00 Hydralazine HCl (Apresoline Inj) 10 mg Q1H PRN IV FOR SBP > 160 03/26/16 22:00 Lisinopril (Prinivil) 5 mg Q12HR PO 03/27/16 09:15 03/27/16 10:44 Metoprolol Tartrate (Lopressor) 25 mg Q12HR PO 03/27/16 09:15 03/27/16 10:44 (Aracelis Bernardo) Medical Decision Making MDM Remarks 35 y/o male left basal ganglia bleed hypertensive crisis CTA Head neg for AVMs or aneurysm (Aracelis Bernardo) Plan Plan Remarks cont medical management PT, OT, ok OOB from NRS standpoint nonchemical DVT prophylaxis due to ICH protonix for stress ulcer prophylaxis (Aracelis Bernardo) Attending Statement The exam, history, and the medical decision-making described in the above note were completed with the assistance of the mid-level provider. I reviewed and agree with the findings presented. I attest that I had a [id number] encounter with the patient on the same day, and personally performed and documented my assessment and findings in the medical record. (Michael Rodríguez MD) Aracelis Bernardo Mar 27, 2016 09:08 Michael Rodríguez MD Mar 30, 2016 20:29
[2016-03-27] MEDS: LISINOPRIL 5 MG TAB PO SCH ×2 (10:44→21:26)
[2016-03-27] MEDS: METOPROLOL TARTRATE 25 MG TAB PO SCH ×2 (10:44→21:25)
[2016-03-28] VITALS (7 sets, daily range): BP systolic 121–153; BP diastolic 72–88; PULSE 62–78; RESP 15–22; TEMP 98–98.1; O2SAT 95–97
[2016-03-28] MEDS: NS + KCL 20 MEQ INJ 1,000 ML IV SCH (01:13)
[2016-03-28] MEDS: CHLORHEXIDINE GLUCONATE 2 % 1 PACK (2 CLOTHS) TOP SCH (04:00)
--- NOTE | 2016-03-28 09:22 | HHI.NSPN ---
(Aracelis Bernardo) Note Status Status: Progress Note (Aracelis Bernardo) Status: Progress Note (Michael Rodríguez MD) Interval History Interval History Mr. Soriano is a 36 y/o right handed male developed numbness and weakness of his right hand, arm, leg. Arrived to ED with an hypertensive crisis, BP 218/ 122. CT Head with left basal ganglia bleed about 3 X 2 cm.. Cardene started in ED. 03/26: on cardene, feeling ok, he denies headaches, nausea, vomiting. reports of mild weakness to the right side but he is able to move his right side well. 03/27: continues to be on cardene, neuro stable overnight, denies headaches, nausea, vomiting, right side with good strength 03/28: off cardene, continues to move right side well, no new neurological complaints overnight. (Aracelis Bernardo) Labs, Micro, & Vital Signs Results Date Time Temp Pulse Resp B/P Pulse Ox O2 Delivery O2 Flow Rate FiO2 03/28/16 07:00 99 Room Air 03/28/16 06:00 76 03/28/16 04:00 74 22 131/82 97 03/28/16 04:00 74 03/28/16 02:00 62 03/28/16 00:00 66 15 121/72 95 03/28/16 00:00 66 03/27/16 22:00 76 03/27/16 20:00 98.7 82 23 131/66 97 03/27/16 20:00 82 03/27/16 19:00 96 Room Air 03/27/16 18:00 80 03/27/16 16:00 78 03/27/16 16:00 98.1 80 16 132/60 96 03/27/16 14:00 95 03/27/16 12:00 89 03/27/16 12:00 98.7 89 18 151/95 98 03/27/16 10:00 89 03/28/16 07:00 Intake Total 3351 ml Output Total 2850 ml Balance 501 ml Constitutional Vital Signs Date Time Temp Pulse Resp B/P Pulse Ox O2 Delivery O2 Flow Rate FiO2 03/28/16 07:00 99 Room Air 03/28/16 06:00 76 03/28/16 04:00 74 22 131/82 97 03/28/16 04:00 74 03/28/16 02:00 62 03/28/16 00:00 66 15 121/72 95 03/28/16 00:00 66 03/27/16 22:00 76 03/27/16 20:00 98.7 82 23 131/66 97 03/27/16 20:00 82 03/27/16 19:00 96 Room Air 03/27/16 18:00 80 03/27/16 16:00 78 03/27/16 16:00 98.1 80 16 132/60 96 03/27/16 14:00 95 03/27/16 12:00 89 03/27/16 12:00 98.7 89 18 151/95 98 03/27/16 10:00 89 03/28/16 07:00 Intake Total 3351 ml Output Total 2850 ml Balance 501 ml (Aracelis Bernardo) Review of Systems/Exam Exam Mr. Bills is alert, awake and oriented to time, place and person. Speech is appropriate. Follows commands well. Cranial nerve examination: pupils 4 mm equal, round and reactive to light. Extra-ocular movements are intact, no nystagmus. Facial motor appears grossly symmetrical. Neck is soft and supple with a good range of motion without pain. Motor: 5-/5 right upper and lower extremity, moves left side with normal strength, mild right pronator drift Sensory examination: reports mildly diminished to right side Deep tendon reflexes are symmetrical in both upper and lower extremities. There is a bilateral plantar flexion response. Cerebellar examination is unremarkable, without deficits. (Aracelis Bernardo) Medications Current Medications Current Medications Medications (Trade) Dose Ordered Sig/Liliana Route PRN Reason Start Time Stop Time Status Last Admin Dose Admin Potassium Chloride/Sodium Chloride (NS + KCl 20 Meq Inj) 1,000 ml @ 50 mls/hr Q20H IV 03/25/16 13:29 03/28/16 01:13 IV Flush (NS Flush) 2 ml UNSCH PRN IV FLUSH FLUSH AFTER USING IV ACCESS 03/25/16 13:30 IV Flush (NS Flush) 2 ml BID IV FLUSH 03/25/16 13:30 03/27/16 21:25 Acetaminophen (Tylenol) 650 mg Q6H PRN PO PAIN 1-5 AND/OR FEVER >101F 03/25/16 13:30 Hydromorphone HCl (Dilaudid Pf Inj) 1 mg Q4H PRN IV PAIN SCALE 6 TO 10 03/25/16 13:30 Pantoprazole Sodium (Protonix Inj) 40 mg DAILY IV 03/25/16 14:15 03/27/16 08:59 Ondansetron HCl (Zofran Inj) 4 mg Q6H PRN IV NAUSEA OR VOMITING 03/25/16 13:30 Miscellaneous Information 1 Q361D XX 03/25/16 13:30 Chlorhexidine Gluconate (Chlorhexidine 2% Cloth) 3 pack Taper DAILY@04 TOP 03/26/16 04:00 03/22/17 03:59 03/26/16 03:22 Chlorhexidine Gluconate 3 pack 3 pack UNSCH PRN TOP HYGIENIC CARE 03/25/16 13:30 Nicardipine HCl 50 mg/Sodium Chloride 500 ml @ 0 mls/hr TITRATE IV 03/25/16 23:13 03/27/16 14:10 Potassium Chloride 100 ml @ 50 mls/hr Q2H PRN IV For Potassium 2.8 - 3.2 mEq/L 03/26/16 10:15 Potassium Chloride (KCl 20 Meq Premix Inj) 100 ml @ 50 mls/hr Q2H PRN IV For Potassium 2.8 - 3.2 mEq/L 03/26/16 10:15 Potassium Chloride 40 meq 40 meq UNSCH PRN PO/TUBE For Potassium 3.3 - 3.5 mEq/L 03/26/16 10:15 Potassium Chloride 100 ml @ 25 mls/hr UNSCH PRN IV For Potassium 3.3 - 3.5 mEq/L 03/26/16 10:15 Potassium Chloride 100 ml @ 50 mls/hr Q2H PRN IV For Potassium 3.3 - 3.5 mEq/L 03/26/16 10:15 Magnesium Sulfate/ Sodium Chloride (Magnesium Sulfate Inj/NS Inj) 100 ml @ 50 mls/hr UNSCH PRN IV For Magnesium 0.9 - 1.1 mg/dL 03/26/16 10:15 Magnesium Oxide 800 mg 800 mg UNSCH PRN PO For Magnesium 1.2 - 1.6 mg/dL 03/26/16 10:15 Magnesium Sulfate/ Sodium Chloride (Magnesium Sulfate Inj/NS Inj) 100 ml @ 50 mls/hr UNSCH PRN IV For Magnesium 1.2 - 1.6 mg/dL 03/26/16 10:15 Potassium Phosphate 2000 mg 2,000 mg Q4H PRN PO For Phosphorus < 2.5 mg/dL 03/26/16 10:15 03/26/16 18:40 Sodium Phosphate/ Sodium Chloride (Sodium Phosphate Inj/NS 250 ml Inj) 250 ml @ 42 mls/hr UNSCH PRN IV For Phosphorus < 2.5 mg/dL 03/26/16 10:15 Potassium Chloride (KCl 40 Meq/30 ml Liq) 40 meq UNSCH PRN PO/TUBE SEE LABEL COMMENTS 03/26/16 10:15 Potassium Phosphate 2000 mg 2,000 mg UNSCH PRN PO/TUBE SEE LABEL COMMENTS 03/26/16 10:15 Potassium Phosphate/Sodium Chloride (Potassium Phosphate Inj/NS 250 ml Inj) 260 ml @ 42 mls/hr UNSCH PRN IV SEE LABEL COMMENTS 03/26/16 10:15 Labetalol HCl (Trandate Inj) 20 mg Q1H PRN IV FOR SBP > 160 03/26/16 22:00 Hydralazine HCl (Apresoline Inj) 10 mg Q1H PRN IV FOR SBP > 160 03/26/16 22:00 03/27/16 15:01 Lisinopril (Prinivil) 5 mg Q12HR PO 03/27/16 09:15 03/27/16 21:26 Metoprolol Tartrate (Lopressor) 25 mg Q12HR PO 03/27/16 09:15 03/27/16 21:25 (Aracelis Bernardo) Medical Decision Making MDM Remarks 35 y/o male left basal ganglia bleed hypertensive crisis, improved CTA Head neg for AVMs or aneurysm (Aracelis Bernardo) Plan Plan Remarks doing well neurologically, cont medical management, blood pressure control clear to dc home from NRS standpoint once medically stable (Aracelis Bernardo) Attending Statement The exam, history, and the medical decision-making described in the above note were completed with the assistance of the mid-level provider. I reviewed and agree with the findings presented. I attest that I had a [id number] encounter with the patient on the same day, and personally performed and documented my assessment and findings in the medical record. (Michael Rodríguez MD) Aracelis Bernardo Mar 28, 2016 09:22 Michael Rodríguez MD Mar 30, 2016 20:35
[2016-03-28] MEDS: LISINOPRIL 5 MG TAB PO SCH (10:19)
[2016-03-28] MEDS: METOPROLOL TARTRATE 25 MG TAB PO SCH (10:19)
[2016-03-28] MEDS: SODIUM CHLORIDE 0.9% FLUSH 5 ML FLUSH IV FLUSH SCH (10:19)
[2016-03-28] MEDS: PANTOPRAZOLE SODIUM 40 MG VIAL IV SCH (10:20)
[2016-03-28] MEDS ORDERED: LISI-519 PO (11:18)
[2016-03-28] MEDS ORDERED: METO25TA3 PO (11:18)
--- NOTE | 2016-04-14 19:40 | HHI.DS ---
Discharge Summary Admission Date Mar 25, 2016 at 13:42 Discharge Date: Mar 27, 2016 Admitting Diagnosis (1) Intraparenchymal hemorrhage of brain ICD Code: I61.9 Diagnosis: Principal (2) Hypertensive emergency ICD Code: I16.1 Diagnosis: Principal Brief History 36 y/o right handed man developed numbness and weakness of his right hand, arm, leg. Arrived to ED with hypertensive crisis, BP 218/122, neuro motor intact grossly. CT Head with left basal ganglia bleed about 3 X 2 cm.. Cardene started in ED. Imaging CT Head X 2. PE at Discharge Minimal sensation deficit right hand. Motor strength symmetrical and 5/5 upper and lower extremities: Speech clear. O X 3. Hospital Course 36 y/o right handed man developed numbness and weakness of his right hand, arm, leg. Arrived to ED with hypertensive crisis, BP 218/122, neuro motor intact grossly. CT Head with left basal ganglia bleed about 3 X 2 cm.. Cardene started in ED. 03/26: Sensation of numbness in his hand but sensory function present right arm. BP control good. No motor deficit. 03/27: No change in neuro status. Protects airway, swallow normal. Pt Condition on Discharge: Good Discharge Disposition: Discharge Home Discharge Instructions DIET: Follow Instructions for: Heart Healthy Diet Additional Diet Instructions: Follow up with PCP in 1 week Activities you can perform: Regular-No Restrictions Additional Information Instructions for taking medication for improved blood pressure control discussed with the patient and his family. Followup outpatient arranged with his primary physician. Wicho Gill MD Apr 14, 2016 19:40
== END 2016-03-28 13:26 | disposition home or self-care (01) | DRG 64 ==
LOC: NEPC 11:00 → NEDA 13:42 → N03B 18:00
PROVIDERS: ADMIT Surgery Surgical Critical Care; ATTEND Surgery Surgical Critical Care
DX: I61.0 Nontraumatic intracerebral hemorrhage in hemisphere, subcortical (principal); G93.6 Cerebral edema; I16.9 Hypertensive crisis, unspecified
CPT/HCPCS: 70450; 70496; 70498; 80048; 80307; 82550; 83735; 84100; 84484; 85025; 85384; 85610; 85730; 87641; 93005; 96374; C9113; J0360; J3480; J7040; J7050; Q9967

== ENCOUNTER 2016-07-02 21:57 | Emergency (ER) | payer MEDICAID ==
[~2016-07-02] VITALS: Ht 177.8 cm; Wt 102.0 kg
[~2016-07-02 21:57] MED LIST changes: -AMLO5TAB22 PO; -ERYT1O EACH EYE; +LISI-519 PO; +METO25TA3 PO
[2016-07-02 22:00] VITALS: BP 222/130; PULSE 66; RESP 14; TEMP 98.5; O2SAT 100
[2016-07-02 22:08] VITALS: BP 198/118; PULSE 71; RESP 16
--- NOTE | 2016-07-02 22:10 | PD ---
Physical Exam Time Seen by Provider: 22:05 Narrative 36yo M c/o DENT started today. Hx ICH. Also c/o of worsening of R sided UE and LE paraesthesias. R sided weakness [id number]. Daniel vomiting. Denies confusion , disorientation, slurred speech. EMR reviewed: Was seen here Mar 25, 2016 for ICH and HTN emergency. Patient seen in triage. VS reviewed. Awaiting bed placement. Data Data Last Documented VS Vital Signs Date Time Temp Pulse Resp B/P Pulse Ox O2 Delivery O2 Flow Rate FiO2 07/02/16 22:08 16 07/02/16 22:08 71 198/118 07/02/16 22:00 98.5 100 Room Air MDM Supervised Visit with MILAGROS: Lupe Pérez July 02, 2016 22:09
[2016-07-02 22:15] VITALS: BP 185/100; PULSE 73; RESP 16
[2016-07-02] MEDS ORDERED: hydrALAZINE HCL 20 MG/ML VIAL IV PUSH ONE (22:30)
--- NOTE | 2016-07-02 22:39 | PD ---
HPI Chief Complaint: Neuro Symptoms/ Deficits Time Seen by Provider: 22:19 Travel History International Travel<30 days: No Contact w/Intl Traveler<30days: No Traveled to known affect area: No History of Present Illness HPI 36yo M with PMH of HTN (noncompliant with medication and not taking anything for at least 2 months) presents to the ED with c/o right hand and foot tingling that has been there for 2 weeks. Pt also with occipital headache that started today and states it was gradual onset. Denies any trauma, fever, visual changes , neck pain, chest pain, sob, n/v, abdominal pain, or focal weakness. Pt was admitted 03/25/16 for right numbness and weakness and found to have hypertensive crisis with left basal ganglia bleed. PFSH Past Medical History Diminished Hearing: No Hypertension: Yes Medical other: Yes (ICH) Tetanus Vaccination: Unknown Influenza Vaccination: No Past Surgical History Surgical History: No Previous Surgery Social History Alcohol Use: Yes (SOCIAL) Tobacco Use: No Substance Use: No Allergies-Medications (Allergen,Severity, Reaction): Coded Allergies: No Known Allergies (Unverified , 03/25/16) Reported Meds & Prescriptions Reported Meds & Active Scripts Active Metoprolol Tartrate 25 Mg Tab 25 Mg PO Q12HR Lisinopril 5 Mg Tab 5 Mg PO Q12HR Review of Systems Except as stated in HPI: all other systems reviewed are Neg Physical Exam Narrative GENERAL: 36yo M not in distress. SKIN: Focused skin assessment warm/dry. HEAD: Atraumatic. Normocephalic. EYES: Pupils equal and round. No scleral icterus. No injection or drainage. ENT: No nasal bleeding or discharge. Mucous membranes pink and moist. NECK: Trachea midline. No JVD. CARDIOVASCULAR: Regular rate and rhythm. No murmur appreciated. RESPIRATORY: No accessory muscle use. Clear to auscultation. Breath sounds equal bilaterally. GASTROINTESTINAL: Abdomen soft, non-tender, nondistended. Hepatic and splenic margins not palpable. MUSCULOSKELETAL: No obvious deformities. No clubbing. No cyanosis. No edema. NEUROLOGICAL: Awake and alert. No obvious cranial nerve deficits. Motor grossly within normal limits. Normal speech. Tingling in entire right hand and plantar service of metatarsals of right foot. Sensation intact bilaterally. Brain Wave Technician normal. PSYCHIATRIC: Appropriate mood and affect; insight and judgment normal. Data Data Last Documented VS Vital Signs Date Time Temp Pulse Resp B/P Pulse Ox O2 Delivery O2 Flow Rate FiO2 07/03/16 00:04 85 18 171/89 99 Room Air 07/02/16 22:[address] Brain W/O Iv Contrast(Rout) (07/02/16 ) Hydralazine Inj (Apresoline Inj) (07/02/16 22:30) Complete Blood Count With Diff (07/02/16 22:30) Basic Metabolic Panel (Bmp) (07/02/16 22:30) Prothrombin Time / Inr (Pt) (07/02/16 22:30) Act Partial Throm Time (Ptt) (07/02/16 22:30) Ketorolac Inj (Toradol Inj) (07/02/16 23:30) Ondansetron Inj (Zofran Inj) (07/02/16 23:30) Clonidine (Catapres) (07/02/16 23:30) Mandatory Outpatient Referral (07/03/16 00:27) Labs Laboratory Tests Test 07/02/16 22:30 White Blood Count 11.9 TH/MM3 Red Blood Count 5.10 MIL/MM3 Hemoglobin 15.3 GM/DL Hematocrit 44.2 % Mean Corpuscular Volume 86.5 FL Mean Corpuscular Hemoglobin 30.0 PG Mean Corpuscular Hemoglobin 34.7 % Concent Red Cell Distribution Width 13.3 % Platelet Count 218 TH/MM3 Mean Platelet Volume 8.2 FL Neutrophils (%) (Auto) 57.2 % Lymphocytes (%) (Auto) 31.0 % Monocytes (%) (Auto) 6.2 % Eosinophils (%) (Auto) 4.8 % Basophils (%) (Auto) 0.8 % Neutrophils # (Auto) 6.8 TH/MM3 Lymphocytes # (Auto) 3.7 TH/MM3 Monocytes # (Auto) 0.7 TH/MM3 Eosinophils # (Auto) 0.6 TH/MM3 Basophils # (Auto) 0.1 TH/MM3 CBC Comment DIFF FINAL Differential Comment Prothrombin Time 10.7 SEC Prothromb Time International 1.0 RATIO Ratio Activated Partial 28.6 SEC Thromboplast Time Sodium Level 143 MEQ/L Potassium Level 3.6 MEQ/L Chloride Level 107 MEQ/L Carbon Dioxide Level 26.6 MEQ/L Anion Gap 9 MEQ/L Blood Urea Nitrogen 14 MG/DL Creatinine 1.01 MG/DL Estimat Glomerular Filtration 84 ML/MIN Rate Random Glucose 102 MG/DL Calcium Level 8.8 MG/DL [facility] Medical Decision Making Medical Screen Exam Complete: Yes Emergency Medical Condition: Yes Interpretation(s) EKG: NSR 74bpm. LAD. LVH. No ST segment elevation or depression. Laboratory Tests Test 07/02/16 22:30 White Blood Count 11.9 TH/MM3 (4.0-11.0) Red Blood Count 5.10 MIL/MM3 (4.50-5.90) Hemoglobin 15.3 GM/DL (13.0-17.0) Hematocrit 44.2 % (39.0-51.0) Mean Corpuscular Volume 86.5 FL (80.0-100.0) Mean Corpuscular Hemoglobin 30.0 PG (27.0-34.0) Mean Corpuscular Hemoglobin 34.7 % Concent (32.0-36.0) Red Cell Distribution Width 13.3 % (11.6-17.2) Platelet Count 218 TH/MM3 (150-450) Mean Platelet Volume 8.2 FL (7.0-11.0) Neutrophils (%) (Auto) 57.2 % (16.0-70.0) Lymphocytes (%) (Auto) 31.0 % (9.0-44.0) Monocytes (%) (Auto) 6.2 % (0.0-8.0) Eosinophils (%) (Auto) 4.8 % (0.0-4.0) Basophils (%) (Auto) 0.8 % (0.0-2.0) Neutrophils # (Auto) 6.8 TH/MM3 (1.8-7.7) Lymphocytes # (Auto) 3.7 TH/MM3 (1.0-4.8) Monocytes # (Auto) 0.7 TH/MM3 (0-0.9) Eosinophils # (Auto) 0.6 TH/MM3 (0-0.4) Basophils # (Auto) 0.1 TH/MM3 (0-0.2) CBC Comment DIFF FINAL Differential Comment Prothrombin Time 10.7 SEC (9.8-11.6) Prothromb Time International 1.0 RATIO Ratio Activated Partial 28.6 SEC Thromboplast Time (24.3-30.1) Sodium Level 143 MEQ/L (136-145) Potassium Level 3.6 MEQ/L (3.5-5.1) Chloride Level 107 MEQ/L (98-107) Carbon Dioxide Level 26.6 MEQ/L (21.0-32.0) Anion Gap 9 MEQ/L (5-15) Blood Urea Nitrogen 14 MG/DL (7-18) Creatinine 1.01 MG/DL (0.60-1.30) Estimat Glomerular Filtration 84 ML/MIN (>89) Rate Random Glucose 102 MG/DL (74-106) Calcium Level 8.8 MG/DL (8.5-10.1) Last Impressions Head CT 07/02/16 0000 Signed Impressions: Service Date/Time: Saturday, July 02, 2016 22:47 - CONCLUSION: Normal examination except for small lacunar infarct on the left. Edinson Mtz MD Differential Diagnosis Hypertensive emergency vs. CVA vs. ICH Narrative Course 36yo M with HTN noncompliant on medication. States he does not have insurance. Labs reviewed, H/H stable. BMP unremarkable. Normal creatinine. CT brain showed normal examination except for small old lacunar infarct on the left. Pt had CTA head in 03/2016 that showed no aneurysmal disease and no AVM. Pt given toradol and zofran and reevaluated at bedside. States headache and tingling has improved. Pt given hydralazine 10mg IV and clonidine 0.1mg PO and blood pressure has improved to 171/89. I feel that his symptoms may be related to his uncontrolled blood pressure and symptoms seemed to be resolving after blood pressure has improved. Pt's headache is gradual onset and mild so I have low suspicion for subarachnoid hemorrhage. Pt states he was taking metoprolol 25mg BID and lisinopril 5mg BID before but ran out of it. I will do mandatory referral and have pt follow up as outpatient. Pt does speak Lithuanian but I explained to pt using quill winder to make sure he fully understands return precautions and answered all questions. I instructed him to follow up with primary care physician and the importance of blood pressure control. He understands that uncontrolled HTN can lead to stroke, heart attack and . Instructed pt to return to the ED immediately if his headache returns, visual changes, weakness, numbness, chest pain, sob or any other concerning symptoms. Diagnosis Primary Impression: Uncontrolled hypertension Patient Instructions: General Instructions Departure Forms: Tests/Procedures Additional Instructions: Please follow up with your PMD in 1-2 days. Return to the ED if symptoms worsen. Since you do not have insurance, I will do mandatory referral. Med/Other Pt SpecificInfo: Prescription(s) given Scripts Metoprolol Tartrate 25 Mg Tab25 Mg PO Q12HR #60 TAB Prov:Dang Ventura DO 07/03/16 Lisinopril 5 Mg Tab5 Mg PO Q12HR #60 TAB Prov:Dang Ventura DO 07/03/16 Disposition: 01 DISCHARGE HOME Condition: Stable Dang Ventura DO July 02, 2016 22:39
[2016-07-02 22:51] LABS: AUTOMATED NEUTROPHIL # 6.8 TH/MM3 (1.8-7.7); BASOPHIL # 0.1 TH/MM3 (0-0.2); BASOPHIL % 0.8 % (0.0-2.0); EOSINOPHIL # 0.6 TH/MM3 (0-0.4); EOSINOPHIL % 4.8 % (0.0-4.0); HEMATOCRIT 44.2 % (39.0-51.0); HEMO FLAGS DIFF FINAL; LYMPHOCYTE # 3.7 TH/MM3 (1.0-4.8); MEAN CELL VOLUME 86.5 FL (80.0-100.0); MEAN CORPUSCULAR HGB CONC 34.7 % (32.0-36.0); MONO % 6.2 % (0.0-8.0); NEUT % 57.2 % (16.0-70.0); PLATELET COUNT 218 TH/MM3 (150-450); RED CELL DISTRIBUTION WIDTH 13.3 % (11.6-17.2); WHITE BLOOD COUNT 11.9 TH/MM3 (4.0-11.0)
--- NOTE | 2016-07-02 23:01 | RADRPT ---
EXAM DATE/TIME: 07/02/2016 22:47 [facility] COMPARISON: CT BRAIN W/O CONTRAST, March 25, 2016, 12:17. INDICATIONS : Patient states has had headaches for several days RADIATION DOSE: 39.32 CTDIvol (mGy) MEDICAL HISTORY : Hypertension. SURGICAL HISTORY : None. ENCOUNTER: Initial ACUITY: 1 day PAIN SCALE: 6/10 LOCATION: cranial TECHNIQUE: Multiple contiguous axial images were obtained of the head. Using automated exposure control and adj ustment of the mA and/or kV according to patient size, radiation dose was kept as low as reasonably a chievable to obtain optimal diagnostic quality images. FINDINGS: CEREBRUM: There is an old left-sided lacunar infarct . The ventricles are normal for age. No evidence of midli ne shift, mass lesion, hemorrhage or acute infarction. No extra-axial fluid collections are seen. POSTERIOR FOSSA: The cerebellum and brainstem are intact. The 4th ventricle is midline. The cerebellopontine angle i s unremarkable. EXTRACRANIAL: The visualized portion of the orbits is intact. SKULL: The calvaria is intact. No evidence of skull fracture. CONCLUSION: Normal examination except for small lacunar infarct on the left. Edinson Mtz MD on July 02, 2016 at 22:59 Board Certified Radiologist. This report was verified electronically.
[2016-07-02 23:06] LABS: APTT (PATIENT) 28.6 SEC (24.3-30.1); PROTHROMBIN TIME - PATIENT 10.7 SEC (9.8-11.6)
[2016-07-02 23:07] VITALS: BP 195/115; PULSE 80; RESP 18; O2SAT 99
[2016-07-02 23:21] LABS: BICARBONATE 26.6 MEQ/L (21.0-32.0); POTASSIUM 3.6 MEQ/L (3.5-5.1)
[2016-07-02] MEDS ORDERED: ONDANSETRON HCL 4 MG/2 ML VIAL IV PUSH ONE (23:30)
[2016-07-02] MEDS ORDERED: cloNIDine HCL 0.1 MG TAB PO ONE (23:30)
[2016-07-02] MEDS ORDERED: KETOROLAC TROMETHAMINE 30 MG/ML (IVP) VIAL IV PUSH ONE (23:30)
[2016-07-02 23:32] VITALS: BP 183/103; PULSE 76; RESP 16; O2SAT 97
[2016-07-03 00:04] VITALS: BP 171/89; PULSE 85; RESP 18; O2SAT 99
[2016-07-03] MEDS ORDERED: METO25TA3 PO (00:39)
[2016-07-03] MEDS ORDERED: LISI-519 PO (00:39)
--- NOTE | 2016-07-03 17:10 | EKG ---
Date Performed: 07/02/2016 Time Performed: 22:17:06 PTAGE: 36 years EKG: Sinus rhythm MINIMAL VOLTAGE CRITERIA FOR LVH, CONSIDER NORMAL VARIANT POSSIBLE LATERAL MYOCARDIAL INFARCTION BOR DERLINE ECG PREVIOUS TRACING : 03/25/2016 12.34 Compared to prior tracing no significant change DOCTOR: Bartolo Verde Interpretating Date/Time 07/03/2016 17:09:56
== END 2016-07-03 00:48 | disposition home or self-care (01) ==
LOC: NEPE 21:57
DX: I10 Essential (primary) hypertension (principal); Z91.14 Patient's other noncompliance with medication regimen; R20.2 Paresthesia of skin
CPT/HCPCS: 70450; 80048; 85025; 85610; 85730; 93005; 96374; 96375; 99285; J0360; J1885; J2405

== ENCOUNTER 2017-05-28 19:08 | Emergency (ER) | payer MEDICAID, OTHER ==
[~2017-05-28] VITALS: Ht 177.8 cm; Wt 106.0 kg
[2017-05-28 19:34] VITALS: BP 146/83; PULSE 58; RESP 18; TEMP 98.8; O2SAT 99
[2017-05-28 21:43] VITALS: BP 141/91; PULSE 58; RESP 18; O2SAT 98
--- NOTE | 2017-05-28 21:59 | PD ---
HPI Chief Complaint: Headache Time Seen by Provider: 21:38 Travel History International Travel<30 days: No Contact w/Intl Traveler<30days: No Traveled to known affect area: No History of Present Illness HPI 37-year-old male presents emergency department complaint of headache. He states that he had a progressive headache develop over the last few days. He states that it is the back of his head base of his neck. Is been present now for the past 3 days. He has taken some aspirin without relief. He denies any recent illness or trauma. He has had no fever chills. No visual changes. No nausea vomiting. No numbness, tingling or weakness. He states the pain is dull. He rates his pain a 9/10. Patient has a history of hypertension but no other medical problems. He denies any history of headaches. PFSH Past Medical History Narrative Medical Hypertension, intracranial bleed Diminished Hearing: No Hypertension: Yes Tetanus Vaccination: Unknown Influenza Vaccination: No Past Surgical History Surgical History: No Previous Surgery Social History Alcohol Use: Yes (SOCIAL) Tobacco Use: No Substance Use: No Allergies-Medications (Allergen,Severity, Reaction): Coded Allergies: No Known Allergies (Unverified Adverse Reaction, Unknown, 05/28/17) Reported Meds & Prescriptions Reported Meds & Active Scripts Active Fioricet (Lshknjxfeg-Uhmfwzvtktmtl-Icobeien) 50-300-40 Mg Cap 1-2 Cap PO Q6H PRN Metoprolol Tartrate 25 Mg Tab 25 Mg PO Q12HR Lisinopril 5 Mg Tab 5 Mg PO Q12HR Review of Systems General / Constitutional: No: Fever Eyes: No: Visual changes HENT: No: Headaches, Neck Pain, Masses Cardiovascular: No: Chest Pain or Discomfort Respiratory: No: Shortness of Breath Gastrointestinal: No: Nausea, Vomiting, Abdominal Pain Genitourinary: No: Dysuria Musculoskeletal: No: Pain Skin: No Rash Neurologic: Positive: Headache, No: Weakness, Dizziness, Focal Abnormalities, Coordination Problem, Change in Mentation, Slurred Speech, Sensory Disturbance Psychiatric: No: Depression Endocrine: No: Polydipsia Hematologic/Lymphatic: No: Easy Bruising Physical Exam Narrative GENERAL: Well-developed, well-nourished in no apparent distress. Nontoxic appearing. HEAD: Normocephalic, atraumatic. EYES: Pupils equal round and reactive. Extraocular motions intact. No scleral icterus. No injection or drainage. ENT: Nose clear. Throat without erythema, tonsillar hypertrophy or exudate. Uvula midline. Airway patent. NECK: Trachea midline. Supple, nontender, moves head freely. No central bony tenderness or spasm. CARDIOVASCULAR: Regular rate and rhythm without murmurs, gallops, or rubs. RESPIRATORY: Clear to auscultation. Breath sounds equal bilaterally. No wheezes , rales, or rhonchi. GASTROINTESTINAL: Abdomen soft, non-tender, nondistended. No hepato-splenomegaly , or palpable masses. No guarding. EXTREMITIES: No clubbing, cyanosis, or edema. No joint tenderness. BACK: Nontender without deformity. No flank tenderness. NEUROLOGICAL: Awake, alert and oriented x 3 .Cranial nerves grossly intact. Motor and sensory grossly within normal limits. Normal speech. Normal gait. Normal tandem gait. Normal finger to nose. Data Data Last Documented VS Vital Signs Date Time Temp Pulse Resp B/P (MAP) Pulse Ox O2 Delivery O2 Flow Rate FiO2 05/28/17 22:20 56 18 143/95 (111) 98 Room Air 05/28/17 19:34 98.8 Orders Orders Ketorolac Inj (Toradol Inj) (05/28/17 22:00) Orphenadrine Inj (Norflex Inj) (05/28/17 22:00) Iv Access Insert/Monitor (05/28/17 22:00) Diphenhydramine Inj (Benadryl Inj) (05/28/17 22:00) Prochlorperazine Inj (Compazine Inj) (05/28/17 22:00) Ct Brain W/O Iv Contrast(Rout) (05/28/17 22:00) Ed Discharge Order (05/28/17 23:03) [facility] Medical Decision Making Medical Screen Exam Complete: Yes Emergency Medical Condition: Yes Medical Record Reviewed: Yes Interpretation(s) Last [address] 05/28/17 2200 Signed Impressions: Service Date/Time: , May 28, 2017 22:38 - CONCLUSION: No acute intracranial findings Kaedn Obregon MD Differential Diagnosis MDM: High Differential diagnoses: migraine, cluster headache, atypical migraine, tension headache Narrative Course Patient looks very comfortable. Is a normal to exam. Patient will be given Benadryl and Compazine. We will CT his head. Review of the medical record indicates he has had a history of hypertensive urgency and intracranial bleed. Patient's headache is improving. His CAT scan is negative. The patient is medically stable for discharge. This is cephalgia Diagnosis Primary Impression: Cephalgia Patient Instructions: General Instructions Additional Instructions: Rest. Increase fluids. Fioricet for pain. Follow-up with your doctor in the next 1-2 days for recheck. Return to the ER for emergencies. Med/Other Pt SpecificInfo: Prescription(s) given Scripts Cwglvmesai-Dpdmlollbaxug-Xdalgixx (Fioricet) 50-300-40 Mg Cap 1-2 CAP PO Q6H Y for HEADACHE, #10 CAP 0 Refills Prov: Nik Verde MD 05/28/17 Disposition: 01 DISCHARGE HOME Condition: Stable Quang Randle May 28, 2017 21:59
[2017-05-28] MEDS ORDERED: diphenhydrAMINE HCL 50 MG/ML VIAL IV PUSH ONE (22:00)
[2017-05-28] MEDS ORDERED: PROCHLORPERAZINE INJ 10 MG/2 ML VIAL IV PUSH ONE (22:00)
[2017-05-28] MEDS ORDERED: KETOROLAC TROMETHAMINE 60 MG/2 ML (IM) VIAL IM ONE (22:00)
[2017-05-28] MEDS ORDERED: ORPHENADRINE INJ 60 MG/2 ML AMP IM ONE (22:00)
[2017-05-28 22:20] VITALS: BP 143/95; PULSE 56; RESP 18; O2SAT 98
--- NOTE | 2017-05-28 22:53 | RADRPT ---
EXAM DATE/TIME: 05/28/2017 22:38 [place] COMPARISON: CT BRAIN W/O CONTRAST, July 02, 2016, 22:47. INDICATIONS : Cephalgia. RADIATION DOSE: 56.35 CTDIvol (mGy) MEDICAL HISTORY : Hypertension. SURGICAL HISTORY : None. ENCOUNTER: Initial ACUITY: 3 days PAIN SCALE: 8/10 LOCATION: cranial TECHNIQUE: Multiple contiguous axial images were obtained of the head. Using automated exposure control and adj ustment of the mA and/or kV according to patient size, radiation dose was kept as low as reasonably a chievable to obtain optimal diagnostic quality images. DICOM format image data is available electro nically for review and comparison. FINDINGS: CEREBRUM: The ventricles are normal for age. No evidence of midline shift, mass lesion, hemorrhage or acute in farction. No extra-axial fluid collections are seen. POSTERIOR FOSSA: The cerebellum and brainstem are intact. The 4th ventricle is midline. The cerebellopontine angle i s unremarkable. EXTRACRANIAL: The visualized portion of the orbits is intact. SKULL: The calvaria is intact. No evidence of skull fracture. CONCLUSION: No acute intracranial findings Kaden Obregon MD on May 28, 2017 at 22:50 Board Certified Radiologist. This report was verified electronically.
[2017-05-28] MEDS ORDERED: BUTA1CAP PO (23:03)
== END 2017-05-28 23:22 | disposition home or self-care (01) ==
LOC: NEPD 19:08
DX: R51 Headache (principal); I10 Essential (primary) hypertension
CPT/HCPCS: 70450; 96374; 96375; 99284; J0780; J1200